=== PATIENT | male | born 1950 | race Caucasian/White ===

== ENCOUNTER → 2016-05-27 | Outpatient (CLI) | payer OTHER, MEDICARE ==
--- NOTE | ~2016-05-27 | EKG ---
[address] [address] ELECTROCARDIOGRAM REPORT Name: WALT YOUNG Room #: [facility]#: [id number] Admission: 05/27/16 Attend Phys: Aidan Guzmán, Discharge: Date of : 52 Report #: [id number] THIS REPORT FOR: //name// [facility] ED Test Date: 2016-05-27 Test Time: 09:57:58 Pat Name: WALT YOUNG Department: Room: Gender: M Director Process Engineering: CHELLE : 1950 Requested By: Aidan Guzmán Order Number: [id number] MD: Jason Simms Measurements Intervals [place] Rate: 51 P: -2 DE: 152 QRS: -22 QRSD: 100 T: 45 QT: 411 QTc: 379 Interpretive Statements Sinus rhythm Borderline left axis deviation Minimal ST elevation, anterior leads No previous ECG available for comparison Electronically Signed On 05-27-2016 16:50:44 INTERNET CONSULTANT by Jason Simms [email or web address] <ELECTRONICALLY SIGNED> By: Jason Simms MD 05/27/16 [id number] [id number] Jason Simms MD /[email or web address]
== END ==
LOC: RAD 09:30
DX: Z00.00 Encounter for general adult medical examination without abnormal findings (principal); R06.02 Shortness of breath; J40 Bronchitis, not specified as acute or chronic